=== PATIENT | female | born 1930 | race Hispanic/Latino ===

== ENCOUNTER → 2017-03-23 | Outpatient (CLI) | payer MEDICARE | END | disposition home or self-care (01) | LOC: OIH 15:32 | PROVIDERS: ATTEND Internal Medicine Critical Care Medicine | DX: M47.896 Other spondylosis, lumbar region (principal); M25.551 Pain in right hip; M25.552 Pain in left hip; K59.00 Constipation, unspecified | CPT/HCPCS: 72100; 73522 ==